=== PATIENT | female | born 1960 | race Caucasian/White ===

== ENCOUNTER 2017-09-01 16:40 | Emergency (ER) | payer BC ==
[2017-09-01 16:40] VITALS: BMI 29.1
[2017-09-01] MEDS ORDERED: Sodium Chloride 0.9% 1,000 ML IV ONE (19:01)
[2017-09-01 19:25] LABS: BASO % 0.7 % (0.0-2.0); EOS # 0.2 K/uL (0.0-0.7); EOS % 2.5 % (0.0-4.0); HEMOGLOBIN 13.3 g/dL (11.0-16.0); LYMPH # 1.7 K/uL (1.0-4.3); LYMPH % 27.3 % (20.0-40.0); MEAN CELL VOLUME 84.4 fL (81.0-99.0); MEAN CORPUSCULAR HEMOGLOBIN 28.4 pg (27.0-31.0); MEAN CORPUSCULAR HGB CONC 33.6 g/dL (33.0-37.0); MEAN PLATELET VOLUME 8.2 fL (7.2-11.7); MONO # 0.7 K/uL (0.0-0.8); MONO % 10.8 % (0.0-10.0); NEUT # 3.7 K/uL (1.8-7.0); NEUT % 58.7 % (50.0-75.0); NRBC % 0.1 % (0.0-2.0); RBC 4.67 Mil/uL (3.80-5.20); RED CELL DISTRIBUTION WIDTH 14.3 % (11.5-14.5); WHITE BLOOD COUNT 6.4 K/uL (4.8-10.8)
[2017-09-01] MEDS ORDERED: Morphine 4 MG/ML VIAL ONE (19:33)
[2017-09-01 19:37] LABS: ALB/GLOB RATIO 1.1 (1.0-2.1); ALBUMIN 4.3 g/dL (3.5-5.0); ALT/SGPT 34 U/L (9-52); AST/SGOT 35 U/L (14-36); BLOOD UREA NITROGEN 26 mg/dL (7-17); CALCIUM 9.3 mg/dl (8.6-10.4); GFR AFRICAN-AMERICAN > 60; GFR NON-AFRICAN AMERICAN 57; LIPASE 155 U/L (23-300)
[2017-09-01 19:42] LABS: SQUAMOUS EPITHIAL 6 /hpf (0-5); URINE BACTERIA RARE (<OCC); URINE BILIRUBIN NEGATIVE (NEGATIVE); URINE BLOOD 1+ (NEGATIVE); URINE CLARITY Hazy (Clear); URINE COLOR Yellow (YELLOW); URINE GLUCOSE (UA) NORMAL (Normal); URINE LEUKOCYTE ESTERASE 3+ Leu/uL (Negative); URINE NITRATE NEGATIVE (NEGATIVE); URINE PROTEIN NEGATIVE (NEGATIVE); URINE UROBILINOGEN NORMAL mg/dL (0.2-1.0)
--- NOTE | 2017-09-01 21:21 | CT ---
EXAM: CT Abdomen and Pelvis Without Intravenous Contrast EXAM DATE/TIME: 09/01/2017 7:49 PM CLINICAL HISTORY: 57 years old, female; Pain; Abdominal pain; Flank; Right; Additional info: Right flank pain. Uti. Left kidney donor. TECHNIQUE: Axial computed tomography images of the abdomen and pelvis without intravenous contrast. All CT scans at this facility use one or more dose reduction techniques, viz.: automated exposure control; ma/kV adjustment per patient size (including targeted exams where dose is matched to indication; i.e. head); or iterative reconstruction technique. Coronal and sagittal reformatted images were created and reviewed. COMPARISON: There are no prior studies for comparison. FINDINGS: Lower thorax: Heart size is normal. There is minimal scarring at the lung bases ABDOMEN: Liver: unremarkable Gallbladder and bile ducts: Gallbladder surgically absent.There is prominence of the common duct. Pancreas: unremarkable Spleen: unremarkable Adrenals: Right adrenal is unremarkable. There is mild nodularity to the left adrenal. Kidneys and ureters: Left kidney is surgically absent. There are multiple clips in the left flank. Right kidney is normal in appearance. There are no renal or ureteral stones.There is no pelvocaliectasis or ureterectasis. Stomach and bowel: Stomach is almost empty. Rotation is normal. There is no obstruction. Terminal ileum is unremarkable. Appendix is not visualized.There is no pericecal inflammation. There is a surgical clip in the right lower quadrant.there is a moderately large amount of stool in the right colon. Left colon is incompletely distended which limits evaluation. There is scattered diverticulosis Appendix: See stomach and bowel PELVIS: Bladder: unremarkable Reproductive: Uterus and adnexal structures are unremarkable. ABDOMEN and PELVIS: Intraperitoneal space: There is no free air or free fluid. Bones/joints: There are no acute osseous abnormalities. There is minimal spondylosis Soft tissues: There is a small fat containing umbilical hernia. Vasculature: There are vascular calcifications. Lymph nodes: There is no pathologic adenopathy. IMPRESSION: Left nephrectomy; normal appearing right kidney, no right renal or ureteral stones or hydronephrosis; cholecystectomy; no acute solid visceral or bowel abnormality
[2017-09-01] MEDS ORDERED: cefTRIAXone IV 1 gm in Dextros 50 ML IVPB STA (21:34)
--- NOTE | 2017-09-01 21:44 | C.PDOC ---
Time Seen by Provider: 09/01/17 18:49 Chief Complaint (Nursing): Abdominal Pain History Per: Patient Onset/Duration Of Symptoms: Days (3) Current Symptoms Are (Timing): Still Present Severity: Moderate Location Of Pain/Discomfort: RUQ Radiation Of Pain To:: Back Quality Of Discomfort: Unable To Describe, "Pain" Associated Symptoms: Back Pain, Urinary Symptoms Exacerbating Factors: Movement Alleviating Factors: None Additional History Per: Prior Records Past Medical History Reviewed: Historical Data, Nursing Documentation, Vital Signs Vital Signs: Last Vital Signs Temp 97.7 F 09/01/17 21:26 Pulse 63 09/01/17 21:26 Resp 22 09/01/17 21:26 BP 144/85 09/01/17 21:26 Pulse Ox 98 09/01/17 21:45 - Medical History PMH: Anemia, Arthritis (right knee), Gastritis Surgical History: Cholecystectomy (03/25/2009), Tonsillectomy Other Surgeries: Left kidney donor Family History: States: Unknown Family Hx - Social History Hx Alcohol Use: No Hx Substance Use: No - Immunization History Hx Tetanus Toxoid Vaccination: No Hx Influenza Vaccination: No Hx Pneumococcal Vaccination: No Review Of Systems Except As Marked, All Systems Reviewed And Found Negative. Constitutional: Negative for: Fever, Weakness Cardiovascular: Negative for: Chest Pain Respiratory: Negative for: Cough, Shortness of Breath Gastrointestinal: Negative for: Vomiting Genitourinary: Positive for: Frequency Musculoskeletal: Positive for: Back Pain (right mid). Negative for: Neck Pain Skin: Negative for: Rash Neurological: Negative for: Weakness, Numbness Physical Exam - Physical Exam Appears: Non-toxic, No Acute Distress Skin: Normal Color, Warm, Dry, No Rash Head: Atraumatic, Normacephalic Eye(s): bilateral: Normal Inspection, PERRL, EOMI Neck: Normal ROM, Supple Cardiovascular: Rhythm Regular Respiratory: Normal Breath Sounds, No Accessory Muscle Use Gastrointestinal/Abdominal: Soft, No Tenderness Back: CVA Tenderness (mild right) Extremity: Normal ROM Neurological/Psych: Oriented x3, Normal Motor, Normal Sensation ED Course And Treatment - Laboratory Results Result Diagrams: 09/01/17 19:22 09/01/17 19:22 Interpretation Of Abnormal: UTI, urine C&S sent. O2 Sat by Pulse Oximetry: 98 Pulse Ox Interpretation: Normal - CT Scan/US CT abd/pelv Other Rad Studies (CT/US): Read By Radiologist, Radiology Report Reviewed CT/US Interpretation: IMPRESSION: Left nephrectomy; normal appearing right kidney, no right renal or. ureteral stones or hydronephrosis; cholecystectomy; no acute solid visceral or. bowel abnormality Progress Note: Pt feels better and wants to go home. I suggested for pt to be admitted, but she declined. We compromised that I would give her the first dose of IV antibiotics and Rx for oral antibiotics and that she will return immediately if she develops fever, chills, vomiting or any worsening of symptoms. Reassessment Condition: Improved Progress - Interventions Interventions:: Observation, Intravenous fluid - Medications Administered Intravenous: Opiate, Other (Abx) - Data Reviewed Data Reviewed: Lab, Diagnostic imaging, Old records - Patient Status Patient status: Mostly improved - Continuity of Care Discussed patient case with:: Patient, ED Nurse - Patient Plan Patient Plan: Discharge, F/U with PCP Disposition Counseled Patient/Family Regarding: Studies Performed, Diagnosis, Need For Followup, Rx Given - Disposition Referrals: Kartik Mcqueen DO [Staff Provider] - Disposition: HOME/ ROUTINE Disposition Time: 22:25 Condition: IMPROVED Additional Instructions: Drink plenty of fluids. Follow up with your doctor within 1-2 days. Return to the ER if you develop fever, chills, vomiting, worsening of symptoms or if you have any other concerns. Prescriptions: Ciprofloxacin [Cipro] 1 tab PO BID #14 tab Instructions: Urinary Tract Infection, Adult (DC) Forms: [facility] (Faroese) - Clinical Impression Clinical Impression: UTI (urinary tract infection)
[2017-09-01] MEDS ORDERED: cefTRIAXone IV 1 gm in Dextros 50 ML IVPB ONE (22:10)
[2017-09-01 23:02] VITALS: BP 128/79; PULSE 73; RESP 20; TEMP 98; O2SAT 97
== END 2017-09-01 23:02 | disposition home or self-care (01) ==
LOC: C.ER 16:40
DX: N39.0 Urinary tract infection, site not specified (principal)
CPT/HCPCS: 74176; 80053; 81001; 83690; 85025; 87086; 87181; 96361; 96374; 96375; 99284; J0696; J2270; J7040

== ENCOUNTER 2017-09-04 13:59 | Observation (INO) | payer BC ==
[2017-09-04 13:59] VITALS: BMI 29.1
--- NOTE | 2017-09-04 15:55 | C.PDOC ---
History Of Present Illness The patient, whose PMHx includes left nephrectomy for donorship, presents to the ED for evaluation of right flank pain which began 3 days ago. Patient reports she initially experienced dysuria but states symptoms have self- resolved since. Patient also reports mild nausea. Patient was evaluated in the ED 2 days ago and declined admission upon recommendation. Patient was told to return to the ED if her pain persisted. She denies fever, chills, vaginal discharge/bleeding and vomiting. Time Seen by Provider: 09/04/17 15:11 Chief Complaint (Nursing): Abdominal Pain History Per: Patient History/Exam Limitations: no limitations Onset/Duration Of Symptoms: Days (3), Persistent Current Symptoms Are (Timing): Still Present Radiation Of Pain To:: Flank (left ) Quality Of Discomfort: "Pain" Associated Symptoms: denies: Fever, Chills, Nausea, Vomiting Additional History Per: Patient Past Medical History Reviewed: Historical Data, Nursing Documentation, Vital Signs Vital Signs: Last Vital Signs Temp 98.1 F 09/04/17 14:13 Pulse 71 09/04/17 14:13 Resp 20 09/04/17 14:13 BP 140/90 09/04/17 14:13 Pulse Ox 98 09/04/17 17:36 - Medical History PMH: Anemia, Arthritis (right knee), Gastritis Surgical History: Cholecystectomy (03/25/2009), Tonsillectomy Family History: States: Unknown Family Hx - Social History Hx Alcohol Use: No Hx Substance Use: No - Immunization History Hx Tetanus Toxoid Vaccination: No Hx Influenza Vaccination: Yes Hx Pneumococcal Vaccination: No Review Of Systems Constitutional: Negative for: Fever, Chills Gastrointestinal: Negative for: Vomiting Genitourinary: Positive for: Dysuria. Negative for: Vaginal Discharge, Vaginal Bleeding Musculoskeletal: Positive for: Other (right flank pain ) Physical Exam - Physical Exam Appears: Non-toxic, No Acute Distress Skin: Normal Color, Warm, Dry Oral Mucosa: Moist Neck: Supple Chest: Symmetrical, No Deformity, No Tenderness Cardiovascular: Rhythm Regular, No Murmur Respiratory: Normal Breath Sounds, No Rales, No Rhonchi, No Wheezing Gastrointestinal/Abdominal: Soft, No Tenderness, No Guarding, No Rebound Back: CVA Tenderness (right), Other (surgical scar noted to left flank area ) Extremity: Normal ROM, Capillary Refill (less than 2 seconds ) Neurological/Psych: Oriented x3, Normal Speech, Normal Cognition ED Course And Treatment - Laboratory Results Result Diagrams: 09/04/17 16:24 09/04/17 16:24 O2 Sat by Pulse Oximetry: 98 (on RA ) Pulse Ox Interpretation: Normal Medical Decision Making Medical Decision Making: Progress: Patients bloodwork and labwork were reviewed. Blood and urine have improved from 3 days ago. However, patient still presents as a right pyelonephritis. Case discussed with patients PMD, Dr. Ro, who wishes to admit the patient to observation for an ID consult in the morning. Disposition - Disposition Disposition Time: 17:15 Condition: FAIR Forms: [facility] (Nauruan) - Clinical Impression Clinical Impression: UTI (urinary tract infection) - Scribe Statement The provider has reviewed the documentation as recorded by the Scribe (Beverly Carlson) Provider Attestation: All medical record entries made by the Scribe were at my direction and personally dictated by me. I have reviewed the chart and agree that the record accurately reflects my personal performance of the history, physical exam, medical decision making, and the department course for this patient. I have also personally directed, reviewed, and agree with the discharge instructions and disposition.
[2017-09-04 16:29] LABS: BASO # 0.1 K/uL (0.0-0.2); EOS # 0.2 K/uL (0.0-0.7); EOS % 2.5 % (0.0-4.0); HEMOGLOBIN 14.3 g/dL (11.0-16.0); LYMPH # 1.8 K/uL (1.0-4.3); LYMPH % 25.8 % (20.0-40.0); MEAN CELL VOLUME 83.7 fL (81.0-99.0); MEAN CORPUSCULAR HEMOGLOBIN 28.1 pg (27.0-31.0); MEAN CORPUSCULAR HGB CONC 33.6 g/dL (33.0-37.0); MEAN PLATELET VOLUME 7.8 fL (7.2-11.7); MONO # 0.8 K/uL (0.0-0.8); MONO % 11.3 % (0.0-10.0); NEUT # 4.2 K/uL (1.8-7.0); NEUT % 59.4 % (50.0-75.0); NRBC % 0.1 % (0.0-2.0); RBC 5.09 Mil/uL (3.80-5.20); RED CELL DISTRIBUTION WIDTH 14.2 % (11.5-14.5); WHITE BLOOD COUNT 7.1 K/uL (4.8-10.8)
[2017-09-04 16:31] LABS: SQUAMOUS EPITHIAL 2 /hpf (0-5); URINE BACTERIA RARE (<OCC); URINE BILIRUBIN NEGATIVE (NEGATIVE); URINE BLOOD NEGATIVE (NEGATIVE); URINE CLARITY Clear (Clear); URINE COLOR Yellow (YELLOW); URINE GLUCOSE (UA) NORMAL (Normal); URINE HYALINE CAST 0-2 /lpf (0-2); URINE LEUKOCYTE ESTERASE NEG Leu/uL (Negative); URINE NITRATE NEGATIVE (NEGATIVE); URINE PROTEIN NEGATIVE (NEGATIVE); URINE UROBILINOGEN NORMAL mg/dL (0.2-1.0)
[2017-09-04 16:45] LABS: ALBUMIN 4.4 g/dL (3.5-5.0); ALT/SGPT 73 U/L (9-52); AST/SGOT 66 U/L (14-36); BLOOD UREA NITROGEN 15 mg/dL (7-17); CALCIUM 9.9 mg/dl (8.6-10.4); GFR AFRICAN-AMERICAN > 60; GFR NON-AFRICAN AMERICAN 51
[2017-09-04] MEDS ORDERED: Piperacillin/Tazobact 3.375 GM in Sodium Chloride 100 ML IVPB STA (17:31)
[2017-09-04] MEDS ORDERED: Morphine 4 MG/ML VIAL IV STA (17:32)
[2017-09-04] MEDS ORDERED: Piperacill/Tazo 3.375gm in Dex 3.375 GM/50 ML BAG IVPB STA (20:11)
[2017-09-04] MEDS: Cefepime IV 1 gm in Dextrose 1 GM/50 ML BAG IVPB SCH (22:01)
[2017-09-04] MEDS ORDERED: Enoxaparin 30 mg Syringe ONE (22:53)
[2017-09-04] MEDS: Enoxaparin 30 mg Syringe SC SCH (23:14)
[2017-09-05] MEDS ORDERED: Magnesium Citrate Oral SOL (300 ml) PO STA (00:41)
[2017-09-05] MEDS ORDERED: Magnesium Citrate Oral SOL (300 ml) ONE (01:02)
--- NOTE | 2017-09-05 01:57 | US ---
EXAM: US Abdomen Complete EXAM DATE/TIME: 09/05/2017 1:00 AM CLINICAL HISTORY: 57 years old, female; Pain; Abdominal pain; Flank; Right; Prior surgery; Surgery date: 6+ months; Additional info: R/O pyelo or abscess TECHNIQUE: Real-time ultrasound of the abdomen (complete) with image documentation. COMPARISON: CT - ABD PELVIS W/O PO OR IV CONT 2017-09-01 20:29 FINDINGS: Status post cholecystectomy. The common bile duct measures 3.5 mm which is within normal limits. The liver is slightly heterogeneous. The spleen is normal and measures 8 cm. The visualized pancreas is normal. Status post left nephrectomy. The right kidney measures 11 cm in length. There is minimal fullness of the right renal pelvis likely compensatory for the left nephrectomy. Recent CT revealed no obstructing calculi. If there is concern for pyelonephritis, CT with intravenous contrast could be performed. IMPRESSION: No acute findings.
[2017-09-05] MEDS: Cefepime 1 GM in Sodium Chloride 0.9% 100 ML IVPB SCH ×2 (09:13→21:27)
[2017-09-05] MEDS: Cefepime IV 1 gm in Dextrose 1 GM/50 ML BAG IVPB SCH (09:14)
--- NOTE | 2017-09-05 09:31 | CP.PCM.HP ---
History of Present Illness - History of Present Illness History of Present Illness: CC: R flank pain 57 y/o female with s/p L Nephrectomy. Patient has R flank pain x 5 days. This was accompanied later by disuria and diarrhea. Patient seen in ER for early Pyelopnephritis ?. Urine C/S is (+) klebsiella, sensitive to Cipro. Patient has persistent R flank pain despite antibiotic. She went to back ER and was place on observation. R flank pain is "severe", stabbing and increase with movement. No more dysuria. Present on Admission - Present on Admission Any Indicators Present on Admission: Yes History of DVT/PE: No History of Uncontrolled Diabetes: No Urinary Catheter: No Decubitus Ulcer Present: No Review of Systems - Review of Systems Systems not reviewed;Unavailable: Acuity of Condition - Constitutional Constitutional: absent: Excessive Sweating, Night Sweats, Sleep Apnea, Weight Loss, Weakness - EENT Eyes: absent: Change in Vision, Loss of Peripheral Vision, Sees Flashes Ears: absent: Ear Discharge, Ear Pain, Disequilibrium Nose/Mouth/Throat: absent: Nasal Congestion, Nose Pain, Bleeding Gums, Dysphagia - Cardiovascular Cardiovascular: absent: Chest Pain, Irregular Heart Rhythm, Leg Edema, Orthopnea , Palpitations - Respiratory Respiratory: absent: Cough, Hemoptysis, Dyspnea on Exertion, Chest Congestion, Excessive Mucous Production - Gastrointestinal Gastrointestinal: absent: Belching, Bloating, Dyspepsia, Dysphagia, Fecal Incontinence, Heartburn, Hematemesis, Nausea - Genitourinary Genitourinary: absent: Difficulty Urinating, Dysuria, Hematuria, Pyuria - Musculoskeletal Musculoskeletal: Back Pain, Myalgias. absent: Abnormal Gait, Arthralgias, Atrophy, Joint Swelling, Loss of Height, Muscle Weakness, Neck Pain, Numbness, Stiffness, Tingling - Integumentary Integumentary: absent: Bleeding Lesions, New Lesions, Rash, Skin Ulcer, Sores, Unusual Bruising - Neurological Neurological: absent: Dizziness, Numbness, Loss of Vision, Restless Legs, Syncope, Vertigo, Weakness Past Patient History - Infectious Disease Hx of Infectious Diseases: None - Past Medical History & Family History Past Medical History?: Yes - Past Social History Smoking Status: Never Smoked - CARDIAC Hx Cardiac Disorders: No - PULMONARY Hx Respiratory Disorders: No - NEUROLOGICAL Hx Dizziness: Yes - HEENT Other/Comment: wear eyeglasses at all times - RENAL Other/Comment: left kidney donor given to pt. - ENDOCRINE/METABOLIC Hx Endocrine Disorders: No - HEMATOLOGICAL/ONCOLOGICAL Hx Anemia: Yes - INTEGUMENTARY Hx Dermatological Problems: No - MUSCULOSKELETAL/RHEUMATOLOGICAL Hx Arthritis: Yes (right knee) - GASTROINTESTINAL Hx Gastritis: Yes - GENITOURINARY/GYNECOLOGICAL Hx Genitourinary Disorders: No - PSYCHIATRIC Hx Substance Use: No - SURGICAL HISTORY Hx Cholecystectomy: Yes (03/25/2009) Hx Tonsillectomy: Yes - ANESTHESIA Hx Anesthesia: Yes Hx Anesthesia Reactions: No Hx Malignant Hyperthermia: No Meds Allergies/Adverse Reactions: Allergies Allergy/AdvReac Type Severity Reaction Status Date / Time IV dye Allergy Uncoded 09/01/17 17:09 Physical Exam - Constitutional Appears: Well - Eye Exam Eye Exam: absent: Normal appearance - ENT Exam ENT Exam: absent: Mucous Membranes Moist - Neck Exam Neck exam: Positive for: Full Rom. Negative for: Lymphadenopathy, Thyromegaly - Respiratory Exam Respiratory Exam: absent: Decreased Breath Sounds, Clear to Auscultation Bilateral, Rales, Wheezes - Cardiovascular Exam Cardiovascular Exam: REGULAR RHYTHM, +S1, +S2. absent: Gallop, JVD, Systolic Murmur - GI/Abdominal Exam GI & Abdominal Exam: Soft. absent: Mass, Tenderness - Extremities Exam Extremities exam: Positive for: full ROM, normal capillary refill. Negative for : calf tenderness, joint swelling Results - Vital Signs Recent Vital Signs: Last Vital Signs Temp 97.1 F L 09/05/17 04:06 Pulse 70 09/05/17 04:06 Resp 20 09/05/17 04:06 BP 119/74 09/05/17 04:06 Pulse Ox 99 09/05/17 04:06 - Labs Result Diagrams: 09/04/17 16:24 09/04/17 16:24 Labs: Laboratory Results - last 24 hr 09/04/17 09/04/17 09/04/17 16:24 16:24 16:24 WBC 7.1 RBC 5.09 Hgb 14.3 Hct 42.6 MCV 83.7 MCH 28.1 MCHC 33.6 RDW 14.2 Plt Count 226 MPV 7.8 Neut % (Auto) 59.4 Lymph % (Auto) 25.8 [place] % (Auto) 11.3 H Eos % (Auto) 2.5 Baso % (Auto) 1.0 Neut # (Auto) 4.2 Lymph # (Auto) 1.8 [place] # (Auto) 0.8 Eos # (Auto) 0.2 Baso # (Auto) 0.1 Sodium 139 Potassium 4.5 Chloride 100 Carbon Dioxide 28 Anion Gap 16 BUN 15 Creatinine 1.1 Est GFR ( Amer) > 60 Est GFR (Non-Af Amer) 51 Random Glucose 96 Calcium 9.9 Total Bilirubin 0.6 AST 66 H D ALT 73 H D Alkaline Phosphatase 125 Total Protein 8.9 H Albumin 4.4 Globulin 4.4 H Albumin/Globulin Ratio 1.0 Urine Color Yellow Urine Clarity Clear Urine pH 6.0 Ur Specific [place] 1.012 Urine Protein Negative Urine Glucose (UA) Normal Urine Ketones Negative Urine Blood Negative Urine Nitrate Negative Urine Bilirubin Negative Urine Urobilinogen Normal Ur Leukocyte Esterase Neg Urine WBC (Auto) 1 Urine RBC (Auto) 2 Ur Squamous Epith Cells 2 Ur Transition Epith Cell < 1 Urine Bacteria Rare Hyaline Casts 0-2 Assessment & Plan - Assessment and Plan (Free Text) Assessment: UTI ; R flank pain - muscle s/p L Neprectomy On IV antibiotic/ ind fluid Sono and CT reviewed - unlikely has renal abscess or stone [place] for constipation
[2017-09-05] MEDS: Enoxaparin 30 mg Syringe SC SCH ×2 (09:58→21:27)
--- NOTE | 2017-09-05 10:00 | CP.PCM.CON ---
History of Present Illness - History of Present Illness History of Present Illness: 60 y0 female with r pyelo r/o sepsis failed out pt rx Past Patient History - Infectious Disease Hx of Infectious Diseases: None - Past Medical History & Family History Past Medical History?: Yes - Past Social History Smoking Status: Never Smoked - CARDIAC Hx Cardiac Disorders: No - PULMONARY Hx Respiratory Disorders: No - NEUROLOGICAL Hx Dizziness: Yes - HEENT Other/Comment: wear eyeglasses at all times - RENAL Other/Comment: left kidney donor given to pt. - ENDOCRINE/METABOLIC Hx Endocrine Disorders: No - HEMATOLOGICAL/ONCOLOGICAL Hx Anemia: Yes - INTEGUMENTARY Hx Dermatological Problems: No - MUSCULOSKELETAL/RHEUMATOLOGICAL Hx Arthritis: Yes (right knee) - GASTROINTESTINAL Hx Gastritis: Yes - GENITOURINARY/GYNECOLOGICAL Hx Genitourinary Disorders: No - PSYCHIATRIC Hx Substance Use: No - SURGICAL HISTORY Hx Cholecystectomy: Yes (03/25/2009) Hx Tonsillectomy: Yes - ANESTHESIA Hx Anesthesia: Yes Hx Anesthesia Reactions: No Hx Malignant Hyperthermia: No Meds Allergies/Adverse Reactions: Allergies Allergy/AdvReac Type Severity Reaction Status Date / Time IV dye Allergy Uncoded 09/01/17 17:09 - Medications Medications: Current Medications Enoxaparin Sodium (Lovenox) 30 mg SC Q12 [facility] Last Admin: 09/05/17 09:58 Dose: 30 mg Cefepime HCl 1 gm/ Sodium (Chloride) 100 mls @ 100 mls/hr IVPB Q12H [facility] Last Admin: 09/05/17 09:13 Dose: 100 mls/hr Results - Vital Signs Recent Vital Signs: Last Vital Signs Temp 97.1 F L 09/05/17 04:06 Pulse 70 09/05/17 04:06 Resp 20 09/05/17 04:06 BP 119/74 09/05/17 04:06 Pulse Ox 99 09/05/17 04:06 - Labs Result Diagrams: 09/04/17 16:24 09/04/17 16:24 Labs: Laboratory Results - last 24 hr 09/04/17 09/04/17 09/04/17 16:24 16:24 16:24 WBC 7.1 RBC 5.09 Hgb 14.3 Hct 42.6 MCV 83.7 MCH 28.1 MCHC 33.6 RDW 14.2 Plt Count 226 MPV 7.8 Neut % (Auto) 59.4 Lymph % (Auto) 25.8 [place] % (Auto) 11.3 H Eos % (Auto) 2.5 Baso % (Auto) 1.0 Neut # (Auto) 4.2 Lymph # (Auto) 1.8 [place] # (Auto) 0.8 Eos # (Auto) 0.2 Baso # (Auto) 0.1 Sodium 139 Potassium 4.5 Chloride 100 Carbon Dioxide 28 Anion Gap 16 BUN 15 Creatinine 1.1 Est GFR ( Amer) > 60 Est GFR (Non-Af Amer) 51 Random Glucose 96 Calcium 9.9 Total Bilirubin 0.6 AST 66 H D ALT 73 H D Alkaline Phosphatase 125 Total Protein 8.9 H Albumin 4.4 Globulin 4.4 H Albumin/Globulin Ratio 1.0 Urine Color Yellow Urine Clarity Clear Urine pH 6.0 Ur Specific [place] 1.012 Urine Protein Negative Urine Glucose (UA) Normal Urine Ketones Negative Urine Blood Negative Urine Nitrate Negative Urine Bilirubin Negative Urine Urobilinogen Normal Ur Leukocyte Esterase Neg Urine WBC (Auto) 1 Urine RBC (Auto) 2 Ur Squamous Epith Cells 2 Ur Transition Epith Cell < 1 Urine Bacteria Rare Hyaline Casts 0-2
--- NOTE | 2017-09-05 11:22 | RAD ---
HISTORY: R side abd colic COMPARISON: CT abdomen and pelvis without contrast performed 09/01/17 FINDINGS: BOWEL: Nonobstructive bowel gas pattern. No definite free air, however entirety of the right hemidiaphragm excluded from view. Right upper quadrant surgical clips. Additional scattered metallic clips noted. Moderate constipation. BONES: Degenerative changes. OTHER FINDINGS: None. IMPRESSION: Moderate constipation.
[2017-09-05 17:00] VITALS: RESP 20
[2017-09-06 08:28] VITALS: BP 119/75; PULSE 66; TEMP 97.9; O2SAT 95
--- NOTE | 2017-09-06 08:53 | CP.PCM.PN ---
Subjective - Date & Time of Evaluation Date of Evaluation: 09/06/17 Time of Evaluation: 08:50 - Subjective Subjective: Pt feels much better; R flank pain justin dec in pain No CP, no SOB, no cough, no edema, no more dysuria nor feverish feeling Walks to bathroom and had BM; Objective - Vital Signs/Intake and Output Vital Signs (last 24 hours): Temp Pulse Resp BP Pulse Ox 97.9 F 66 20 119/75 95 09/06/17 08:27 09/06/17 08:27 09/06/17 08:27 09/06/17 08:27 09/06/17 08:27 Intake and Output: 09/06/17 09/06/17 06:59 18:59 Intake Total 300 300 Balance 300 300 - Medications Medications: Current Medications Enoxaparin Sodium (Lovenox) 30 mg SC Q12 [facility] Last Admin: 09/05/17 21:27 Dose: 30 mg Cefepime HCl 1 gm/ Sodium (Chloride) 100 mls @ 100 mls/hr IVPB Q12H [facility] Last Admin: 09/05/17 21:27 Dose: 100 mls/hr Pneumococcal Polyvalent Vaccine (Pneumovax 23 Vaccine) 0.5 ml IM .ONCE ONE Stop: 09/07/17 10:01 - Labs Labs: 09/04/17 16:24 09/04/17 16:24 - Constitutional Appears: No Acute Distress - Eye Exam Eye Exam: Normal appearance - ENT Exam ENT Exam: Mucous Membranes Moist - Neck Exam Neck Exam: Full ROM. absent: Lymphadenopathy - Respiratory Exam Respiratory Exam: Clear to Ausculation Bilateral. absent: Rales, Rhonchi, Wheezes - Cardiovascular Exam Cardiovascular Exam: +S1, +S2. absent: Gallop, REGULAR RHYTHM, JVD, Murmur - GI/Abdominal Exam GI & Abdominal Exam: Soft. absent: Tenderness, Mass - Extremities Exam Extremities Exam: Full ROM, Normal Capillary Refill. absent: Calf Tenderness, Joint Swelling, Tenderness Assessment and Plan - Assessment and Plan (Free Text) Plan: Acute Pyelonephritis; Constipation Discharge on Cipro Repeat urine C/S aftr 1-2 wks off Cipro F/up 09/21 on clinic
[2017-09-06] MEDS: Enoxaparin 30 mg Syringe SC SCH (09:54)
[2017-09-06] MEDS: Cefepime 1 GM in Sodium Chloride 0.9% 100 ML IVPB SCH (09:55)
[2017-09-06] MEDS ORDERED: Pneumococcal 23-Valent Vaccine IM ONE (12:45)
== END 2017-09-06 13:24 | disposition home or self-care (01) ==
LOC: C.ER 13:59 → C.9E 17:30 → C.3T 09-05 13:52
PROVIDERS: ADMIT Internal Medicine; ATTEND Internal Medicine
DX: N10 Acute pyelonephritis (principal); M17.11 Unilateral primary osteoarthritis, right knee; Z90.5 Acquired absence of kidney; K59.00 Constipation, unspecified
CPT/HCPCS: 74019; 76700; 80053; 81001; 85025; 87040; 87086; 96365; 96372; 99285; G0378; J0692; J1650; J2270; J2543